=== PATIENT | female | born 1990 | race African-American/Black ===

== ENCOUNTER 2017-02-13 09:27 | Emergency (ER) | payer BC ==
[~2017-02-13] VITALS: Ht 157.5 cm; Wt 57.2 kg
[2017-02-13 09:52] LABS: APPEARANCE,URINE CLEAR; KETONES,URINE NEGATIVE (NEGATIVE); LEUKOCYTE ESTERASE ,URINE 3+ (NEGATIVE); NITRITE,URINE NEGATIVE (NEGATIVE); PH,URINE 7 (4.5-8.0); PROTEIN,URINE NEGATIVE (NEGATIVE); UROBILINOGEN,URINE NORMAL MG/DL (0.0-1.0)
[2017-02-13 10:00] LABS: BACTERIA,URINE OCCASIONAL /HPF; RBC,URINE 0-2 /HPF (0 - 2); SQUAMOUS EPITHELIAL CELL,UR OCCASIONAL /LPF (NONE/OCC)
--- NOTE | 2017-02-13 10:11 | Emergency Room Report ---
History of Present Illness General Chief Complaint: Female Urogenital Problems Source: Patient Present Illness HPI Patient presents with complaints of chills Urinary frequency Patient had been seen by her OB physician yesterday She was reported to have small amount of blood in the urine However no further intervention was taken Patient felt that the discomfort was going to the right lower back and flank area And presents for further evaluation Patient has some mild nausea Denies any vomiting or diarrhea Denies any previous abdominal surgeries she reports a laparoscopic intervention for the gallbladder area Patient is , Denies any other vaginal discharge or foul smell Allergies: Coded Allergies: IODINE (Verified Allergy, Severe, Hives, 02/13/17) SHELLFISH DERIVED (Verified Allergy, Severe, Hives, 02/13/17) Patient History Past Medical History: see triage record Pertinent Family History: none Last Menstrual Period: 5-28 Now: Yes - 14 weeks : 3 Para: 1 Reviewed Nursing Documentation: PMH: Agreed, PSxH: Agreed Nursing Documentation-PMH Past Medical History: No History, Except For Review of Systems All Other Systems: negative except mentioned in HPI Physical Exam Vital Signs Date Time Temp Pulse Resp B/P (MAP) Pulse Ox O2 Delivery O2 Flow Rate FiO2 02/13/17 09:29 98.1 102 20 134/88 98 Room Air Sp02 EP Interpretation: reviewed, normal General Appearance: well appearing, no apparent distress Head: normocephalic, atraumatic Eyes: bilateral eye PERRL, bilateral eye EOMI ENT: hearing grossly normal, normal pharynx, TMs + canals normal, uvula midline Neck: full range of motion, supple, no meningismus, no bony tend Respiratory: lungs clear, normal breath sounds, no rhonchi, no respiratory distress, no retraction, no accessory muscle use Cardiovascular #1: normal peripheral pulses, regular rate, rhythm, no edema, no gallop, no JVD, no murmur Gastrointestinal: normal bowel sounds, soft, no mass, no organomegaly, non- distended, no guarding, no hernia, no pulsatile mass, no rebound, tenderness - Over the suprapubic area, there is some increased discomfort on the right suprapubic lower abdominal region Genitourinary: no CVA tenderness Musculoskeletal: normal inspection Neurologic: oriented x3, responsive, internal communications writer III-XII nml as tested, motor strength/ tone normal, sensory intact Psychiatric: mood/affect normal Skin: normal color, no rash, warm/dry, palpation normal Lymphatic: normal inspection, no adenopathy Medical Decision Making Diagnostic Impression: Primary Impression: UTI (urinary tract infection) ER Course With the patient's history and examination, multiple differentials considered, including but not limited to , ectopic , ovarian torsion, gastritis, cholecystitis, pancreatitis, appendicitis Patient has a confirmed intrauterine by her OB physician It was bit approximately 14 weeks and has a very recent ultrasound Ectopic is ruled out with this Early signs of pyelonephritis or considered Patient hemodynamically stable at this time Was provided with oral antibiotics after her urine sample showing infection here I did discuss signs of early appendicitis and the need to return to the emergency room should symptoms continue/persist or worsen On today's exam there is no clear signs of appendicitis no obvious rebound, I do not feel that further emergency imaging was required Patient is here with her mom and they understand this and will return with any changes Labs Test 02/13/17 09:35 Urine Color Pale yellow Urine Appearance Clear Urine pH 7 (4.5-8.0) Urine Specific [place] 1.010 (1.005-1.035) Urine Protein Negative (NEGATIVE) Urine Glucose (UA) Negative (NEGATIVE) Urine Ketones Negative (NEGATIVE) Urine Occult Blood 1+ (NEGATIVE) Urine Nitrite Negative (NEGATIVE) Urine Bilirubin Negative (NEGATIVE) Urine Urobilinogen Normal MG/DL (0.0-1.0) Urine Leukocyte Esterase 3+ (NEGATIVE) Urine RBC 0-2 /HPF (0 - 2) Urine WBC 5-10 /HPF (0 - 2) Urine Squamous Epithelial Cells Occasional /LPF Urine Bacteria Occasional /HPF (NONE) Last Vital Signs Date Time Temp Pulse Resp B/P (MAP) Pulse Ox O2 Delivery O2 Flow Rate FiO2 02/13/17 09:29 98.1 102 20 134/88 98 Room Air Status: improved Disposition: HOME, SELF-CARE Condition: Improved Scripts Cephalexin* (KEFLEX*) 500 Mg Capsule 500 MG ORAL Q6H, #28 CAP 0 Refills Prov: TU VERNON D.O. 02/13/17 Referrals: NON PHYSICIAN (PCP) Additional Instructions: Followup SYSTEMS SOFTWARE SPECIALIST next 2 days, return to the emergency room with any continued, persistent or worsening discomfort TU VERNON D.O. Feb 13, 2017 10:11
[2017-02-13] MEDS ORDERED: KEFLEX500 MG ORAL (10:13)
[2017-02-13] MEDS ORDERED: Cephalexin 500mg cap ORAL ONE (10:15)
[2017-02-13 10:19] VITALS: BP 134/88
== END 2017-02-13 10:20 | disposition home or self-care (01) ==
LOC: EMR 10:02
DX: N39.0 Urinary tract infection, site not specified (principal); Z88.8 Allergy status to other drugs, medicaments and biological substances; Z91.013 Allergy to seafood
CPT/HCPCS: 81003; 99283